=== PATIENT | female | born 2000 | race Hispanic/Latino ===

== ENCOUNTER 2022-07-02 16:12 | Emergency (ER) | payer OTHER ==
[2022-07-02] MEDS ORDERED: methylPREDNISolone Sod Succ/PF 125 MG/2 ML VIAL ONE (18:09)
[2022-07-02] MEDS ORDERED: Ipratropium/Albuterol 3 ML NEB ONE (18:22)
[2022-07-02 19:37] LABS: SARS-CoV-2 NAA Rapid Test Not Detected (NotDetected)
== END 2022-07-02 19:17 | disposition home or self-care (01) ==
LOC: ERS 16:12
DX: J45.901 Unspecified asthma with (acute) exacerbation (principal); J18.9 Pneumonia, unspecified organism; B34.9 Viral infection, unspecified; Z20.822 Contact with and (suspected) exposure to COVID-19
CPT/HCPCS: 71046; 94640; 96372; J2930; J7620